=== PATIENT | female | born 1960 | race Caucasian/White ===

== ENCOUNTER 2023-12-30 12:54 | Outpatient (OUT) | payer OTHER, SELFPAY ==
--- NOTE | 2023-12-30 13:02 | XR_ITS ---
[address] [address] Patient Name: JACK RIVERA MRN: [id number] date: 1960 Sex: F Assigned Patient Location: [facility] Current Patient Location: [facility] Accession/Order Number: [id number] Exam Date: 12/30/2023 13:15 Report Date: 12/30/2023 13:54 At the request of: NON-STAFF PHYSICIAN Procedure: XR DEXA axial skeleton EXAMINATION: XR DEXA axial skeleton, 12/30/2023 1:15 PM EDT HISTORY: Osteoporosis M81.0 COMPARISON: 2013 TECHNIQUE: Dual-energy X-ray absorptiometry (DEXA) bone density study performed for the axial skeleton. HISTORY: Osteoporosis M81.0 FINDINGS: Bone mineral density L1-L4 spine measures 1.216 g/sq cm. T score 0.3. WHO classification is normal. This is artifactually elevated secondary to degenerative proliferative spondylosis Lowest bone mineral densities in the right femoral neck measuring 1.002 g/sq cm. T score -0.3. WHO classification: Normal XR/XR DEXA axial skeleton IMPRESSION: Normal bone mineral density. Low fracture risk Electronically authenticated by: ALAN CABRAL Date: 12/30/2023 13:54
== END 2023-12-30 12:55 | disposition home or self-care (01) ==
LOC: RAD 12:57
PROVIDERS: PCP Internal Medicine
DX: M81.0 Age-related osteoporosis without current pathological fracture (principal)
CPT/HCPCS: 77080